=== PATIENT | female | born 1960 | race African-American/Black ===

== ENCOUNTER 2024-06-04 22:52 | Inpatient (IN) | payer OTHER ==
[~2024-06-04] VITALS: Ht 160 cm; Wt 65.8 kg
[2024-06-04 23:35] LABS: HEMATOCRIT. 34.7 % (36.0-48.0); HEMOGLOBIN. 11.2 g/dL (12.0-16.0); MEAN CORPUSCULAR HEMOGLOBIN 31.4 pg (28.0-32.0); MEAN CORPUSCULAR HGB CONC 32.3 g/dL (31.0-37.0); MEAN CORPUSCULAR VOLUME 97.2 fL (81.0-99.0); MEAN PLATELET VOLUME 8.6 fl (7.4-10.4); PLATELET 260 x1000/uL (130-400); RED BLOOD CELL COUNT 3.57 mill/uL (4.2-5.4); RED CELL DISTRIBUTION WIDTH 13.5 % (11.6-14.6); WHITE BLOOD COUNT 11.5 x1000/uL (4.5-11.0)
[2024-06-04 23:42] LABS: DIFFERENTIAL COMMENT 1
[2024-06-04 23:49] LABS: CHLORIDE 104 mEq/L (98-107); POTASSIUM 3.8 mEq/L (3.5-5.1); SODIUM 139 mEq/L (136-145)
[2024-06-04 23:50] LABS: CARBON DIOXIDE 25 mEq/L (21-32)
[2024-06-04 23:51] LABS: CALCIUM 9.1 mg/dL (8.7-10.4)
[2024-06-04 23:55] LABS: CREATININE 0.6 mg/dL (0.6-1.0); GLUCOSE 243 mg/dL (70-105)
[2024-06-04 23:56] LABS: TROPONIN I HIGH SENSITIVITY 5 ng/L (3.0-34); UREA NITROGEN BLOOD 15 mg/dL (9-23)
[2024-06-05] MEDS ORDERED: FUROSEMIDE 20MG/2ML VIAL IVP ONE (00:45)
[2024-06-05] MEDS: FUROSEMIDE 40MG/4ML VIAL IVP NR (03:50)
[2024-06-05 05:08] LABS: PLATELET ESTIMATE NORMAL
[2024-06-05 17:30] VITALS: BP_SYST 134; BP_SYST 137; BP_DIAS 75; BP_DIAS 80; PULSE 114; RESP 20; TEMP 36.3; TEMP 36.4; O2SAT 97; O2SAT 98
[2024-06-05] MEDS ORDERED: ONDANSETRON HCL 4MG/2ML INJ IV PRN (19:00)
[2024-06-05] MEDS ORDERED: DEXTROSE 50% WATER 50ML SYRINGE IV PRN (19:00)
[2024-06-05] MEDS ORDERED: IPRATROPIUM/ALBUTEROL 0.5-3(2.5)MG/3ML NEB HHN PRN (19:00)
[2024-06-05 20:00] VITALS: BP 126/76; PULSE 108; RESP 18; TEMP 37.1; O2SAT 95
[2024-06-05] MEDS: BLOOD SUGAR DIAGNOSTIC STRIP TEST SCH (20:27)
[2024-06-05] MEDS: INSULIN LISPRO 100 UNITS/ML SUBCUT SCH (20:27)
[2024-06-05] MEDS: ENOXAPARIN 40MG/0.4ML SYR SUBCUT SCH (20:34)
[2024-06-05] MEDS: CEFTRIAXONE 1GM/50ML 50 ML IV SCH (20:43)
[2024-06-05 22:42] LABS: HEPATITIS B SURFACE ANTIGEN NEGATIVE (Negative)
[2024-06-05 23:03] LABS: HEPATITIS C AB NON REACTIVE (Neg) (Negative)
[2024-06-06] VITALS (7 sets, daily range): BP systolic 99–119; BP diastolic 59–71; PULSE 90–106; RESP 15–20; TEMP 35.6–38.1; O2SAT 95–100
[2024-06-06 05:48] LABS: *AMPHETAMINES SCREEN URINE NEGATIVE (NEGATIVE); *BARBITURATES SCREEN URINE NEGATIVE (NEGATIVE); *BENZODIAZEPINES SCREEN URINE NEGATIVE (NEGATIVE)
[2024-06-06 05:49] LABS: *COCAINE SCREEN URINE NEGATIVE (NEGATIVE); CANNABINOID URINE SCREEN NEGATIVE (NEGATIVE); ECSTASY MDMA SCREEN URINE NEGATIVE (NEGATIVE); METHADONE URINE SCREEN NEGATIVE (NEGATIVE); OPIATES URINE SCREEN NEGATIVE (NEGATIVE); PHENCYCLIDINE URINE SCREEN NEGATIVE (NEGATIVE)
[2024-06-06 06:48] LABS: BASOPHILS % 0.1 % (0.0-2.0); EOSINOPHILS % 1.2 % (0.0-5.0); HEMATOCRIT. 30.9 % (36.0-48.0); HEMOGLOBIN. 10.2 g/dL (12.0-16.0); MEAN CORPUSCULAR HEMOGLOBIN 31.4 pg (28.0-32.0); MEAN CORPUSCULAR HGB CONC 33.1 g/dL (31.0-37.0); MEAN CORPUSCULAR VOLUME 94.8 fL (81.0-99.0); MEAN PLATELET VOLUME 8.8 fl (7.4-10.4); MONOCYTES % 11.9 % (2.0-8.0); NEUTROPHILS % 75.8 % (40.0-76.0); PLATELET 237 x1000/uL (130-400); RED BLOOD CELL COUNT 3.26 mill/uL (4.2-5.4); RED CELL DISTRIBUTION WIDTH 13.5 % (11.6-14.6)
[2024-06-06 07:04] LABS: CARBON DIOXIDE 27 mEq/L (21-32); CHLORIDE 104 mEq/L (98-107); POTASSIUM 3.5 mEq/L (3.5-5.1); SODIUM 141 mEq/L (136-145)
[2024-06-06 07:06] LABS: CALCIUM 8.9 mg/dL (8.7-10.4)
[2024-06-06 07:10] LABS: CREATININE 0.6 mg/dL (0.6-1.0); GLUCOSE 128 mg/dL (70-105)
[2024-06-06 07:11] LABS: UREA NITROGEN BLOOD 15 mg/dL (9-23)
[2024-06-06] MEDS: ACETAMINOPHEN 325MG TABLET PO PRN (08:23)
[2024-06-06] MEDS: SODIUM CHLORIDE 0.45% 1,000 ML IV SCH (09:53)
[2024-06-06] MEDS: DILTIAZEM HCL 30MG TABLET PO SCH (09:54)
[2024-06-06] MEDS: AZITHROMYCIN 500MG/250ML 250 ML IV SCH (12:01)
[2024-06-06 15:21] LABS: CLARITY URINE CLOUDY (CLEAR); COLOR URINE DARK YELLOW (YELLOW); GLUCOSE URINE TRACE (NEGATIVE); KETONES URINE TRACE (NEGATIVE); LEUKOCYTE ESTERASE URINE 2+ (NEGATIVE); NITRITE URINE NEGATIVE (NEGATIVE); OCCULT BLOOD URINE TRACE (NEGATIVE); PH URINE 5.5 (4.5-8.0); PROTEIN URINE 2+ (NEGATIVE)
[2024-06-06 16:17] LABS: BACTERIA URINE 3+; HYALINE CASTS URINE 0-5 /lpf
[2024-06-06 16:18] LABS: WBC URINE 25-50 /hpf (0-2)
[2024-06-06 18:34] LABS: INFLUENZA TYPE A Presumptive Negative (Pres. Neg.); INFLUENZA TYPE B Presumptive Negative (Pres. Neg.)
[2024-06-06] MEDS: IPRATROPIUM/ALBUTEROL 0.5-3(2.5)MG/3ML NEB HHN SCH (20:00)
[2024-06-07] VITALS (9 sets, daily range): BP systolic 101–127; BP diastolic 62–76; PULSE 73–102; RESP 15–20; TEMP 36.4–37.5; O2SAT 96–100
[2024-06-07 07:15] LABS: CARBON DIOXIDE 25 mEq/L (21-32); CHLORIDE 102 mEq/L (98-107); POTASSIUM 3.7 mEq/L (3.5-5.1); SODIUM 138 mEq/L (136-145)
[2024-06-07 07:16] LABS: CALCIUM 8.5 mg/dL (8.7-10.4)
[2024-06-07 07:20] LABS: CREATININE 0.5 mg/dL (0.6-1.0); GLUCOSE 115 mg/dL (70-105); UREA NITROGEN BLOOD 14 mg/dL (9-23)
[2024-06-07 07:22] LABS: ALANINE AMINOTRANSFERASE 44 IU/L (10-49); ALBUMIN 3.5 g/dL (3.2-4.8); ASPARTATE AMINOTRANSFERASE 40 IU/L (<34)
[2024-06-07 07:23] LABS: BILIRUBIN DIRECT 0.2 mg/dL (<=3.0); BILIRUBIN TOTAL 0.6 mg/dL (0.1-1.0); PHOSPHORUS 3.3 mg/dL (2.5-4.9)
[2024-06-07 07:31] LABS: INR 1.1; PROTHROMBIN TIME 11.4 sec (9.6-11.0)
[2024-06-07 08:33] LABS: BASOPHILS % 0.3 % (0.0-2.0); EOSINOPHILS % 1.9 % (0.0-5.0); HEMATOCRIT. 30.5 % (36.0-48.0); HEMOGLOBIN. 10.3 g/dL (12.0-16.0); MEAN CORPUSCULAR HEMOGLOBIN 32.1 pg (28.0-32.0); MEAN CORPUSCULAR HGB CONC 33.7 g/dL (31.0-37.0); MEAN CORPUSCULAR VOLUME 95.1 fL (81.0-99.0); MEAN PLATELET VOLUME 8.5 fl (7.4-10.4); MONOCYTES % 9.9 % (2.0-8.0); NEUTROPHILS % 71.9 % (40.0-76.0); PLATELET 264 x1000/uL (130-400); RED CELL DISTRIBUTION WIDTH 13.5 % (11.6-14.6)
[2024-06-08] VITALS (11 sets, daily range): BP systolic 106–119; BP diastolic 63–76; PULSE 84–94; RESP 16–18; TEMP 36.4–37.4; O2SAT 95–100
[2024-06-08 10:37] LABS: BASOPHILS % 0.8 % (0.0-2.0); EOSINOPHILS % 2.4 % (0.0-5.0); HEMATOCRIT. 31.5 % (36.0-48.0); HEMOGLOBIN. 10.2 g/dL (12.0-16.0); LYMPHOCYTES % 16.3 % (20.0-50.0); MEAN CORPUSCULAR HEMOGLOBIN 31.2 pg (28.0-32.0); MEAN CORPUSCULAR HGB CONC 32.4 g/dL (31.0-37.0); MEAN CORPUSCULAR VOLUME 96.1 fL (81.0-99.0); MEAN PLATELET VOLUME 8.1 fl (7.4-10.4); MONOCYTES % 8.9 % (2.0-8.0); NEUTROPHILS % 71.6 % (40.0-76.0); PLATELET 340 x1000/uL (130-400); RED BLOOD CELL COUNT 3.28 mill/uL (4.2-5.4); RED CELL DISTRIBUTION WIDTH 13.6 % (11.6-14.6); WHITE BLOOD COUNT 7.6 x1000/uL (4.5-11.0)
[2024-06-08 11:05] LABS: CHLORIDE 103 mEq/L (98-107); POTASSIUM 3.5 mEq/L (3.5-5.1); SODIUM 140 mEq/L (136-145)
[2024-06-08 11:06] LABS: CARBON DIOXIDE 25 mEq/L (21-32)
[2024-06-08 11:07] LABS: CALCIUM 9.2 mg/dL (8.7-10.4)
[2024-06-08 11:11] LABS: CREATININE 0.6 mg/dL (0.6-1.0)
[2024-06-08 11:12] LABS: GLUCOSE 120 mg/dL (70-105); UREA NITROGEN BLOOD 12 mg/dL (9-23)
[2024-06-09] MEDS ORDERED: AZITHROMYCIN 500 MG TABLET PO SCH (09:00)
== END 2024-06-08 20:45 | disposition home or self-care (01) | DRG 871 ==
LOC: ER 22:52 → EDBEDREQ 06-05 00:52 → 8WST 06-05 17:38
PROVIDERS: ADMIT Internal Medicine; ATTEND Internal Medicine
DX: A41.9 Sepsis, unspecified organism (principal); J18.9 Pneumonia, unspecified organism; E11.65 Type 2 diabetes mellitus with hyperglycemia; Z20.822 Contact with and (suspected) exposure to COVID-19; I50.9 Heart failure, unspecified; D64.9 Anemia, unspecified; M13.88 Other specified arthritis, other site; Z90.49 Acquired absence of other specified parts of digestive tract
CPT/HCPCS: 36415; 71045; 80048; 80076; 80305; 81003; 82962; 83036; 83735; 83880; 84100; 84145; 84443; 84484; 85025; 86705; 87340; 87426; 87804; 93005; 93970; 94070; 94640; 99285; A4606; C1893; J0456; J0696; J1650; J1815; J1940